=== PATIENT | male | born 1975 | race Caucasian/White ===

== ENCOUNTER 2022-01-25 15:35 | Outpatient (CLI) | payer BC, SELFPAY ==
--- NOTE | ~2022-01-25 | MR_ITS ---
EXAMINATION: MR lumbar spine wo con DATE: 01/25/2022 16:11 INDICATION: LUMBAGO . TECHNIQUE: Magnetic resonance imaging (MRI) of the lumbar spine was performed without intravenous con trast. Sequences included sagittal T2-weighted FSE, sagittal T2-weighted FS FSE, sagittal T1-weighted FSE, and axial T2-weighted FSE. COMPARISON: None FINDINGS: The last fully formed and hydrated disc is designated L5-S1. The marrow signal is benign an d homogenous. Conus terminates at L1. Disc height loss and dehydration at L4-5 and L5-S1. The followi ng disc levels are specifically discussed: T11-T12: The disc does not extend beyond the endplate margin. There is no facet joint osteoarthritis. There is no neural foraminal stenosis. There is no central canal stenosis. T12-L1: The disc does not extend beyond the endplate margin. There is mild facet joint osteoarthritis . There is no neural foraminal stenosis. There is no central canal stenosis. L1-L2: The disc does not extend beyond the endplate margin. There is mild facet joint osteoarthritis. There is no neural foraminal stenosis. There is no central canal stenosis. L2-L3: The disc does not extend beyond the endplate margin. There is mild facet joint osteoarthritis. There is no neural foraminal stenosis. There is no central canal stenosis. L3-L4: Broad-based right foraminal protrusion with an associated annular rent in the disc. There is m ild facet joint osteoarthritis. There is no neural foraminal stenosis. There is no central canal sten osis. L4-L5: Moderate diffuse bulge. There is mild facet joint osteoarthritis. There is no neural foraminal stenosis. There is no central canal stenosis. L5-S1: Mild diffuse bulge on which is superimposed a small central protrusion as well as a 6 mm right paracentral protrusion may contact the exiting right L5 nerve root and appears to displace the trave rsing right S1 nerve root There is mild facet joint osteoarthritis. There is no neural foraminal sten osis. There is no central canal stenosis. IMPRESSION: 1. Right foraminal disc protrusion with annular rent at L3-4. 2. 6 mm right paracentral L5-S1 disc protrusion that contacts/displaces the right L5 and S1 nerve marni ts. Reviewed, dictated and finalized at location [facility]. IMPRESSION: 1. Right foraminal disc protrusion with annular rent at L3-4. 2. 6 mm right paracentral L5-S1 disc protrusion that contacts/displaces the rig ht L5 and S1 nerve roots.
== END 2022-01-25 15:36 | disposition home or self-care (01) ==
PROVIDERS: Visit Provider Anesthesiology Pain Medicine
DX: M51.27 Other intervertebral disc displacement, lumbosacral region (principal)
CPT/HCPCS: 72148